=== PATIENT | female | born 1960 | race Two or more races ===

== ENCOUNTER 2021-12-15 15:07 | Outpatient (CLI) | payer OTHER | END 2021-12-15 15:18 | disposition home or self-care (01) | LOC: RAD 15:07 | PROVIDERS: ATTEND Orthopaedic Surgery | DX: M25.561 Pain in right knee (principal); M25.562 Pain in left knee ==

== ENCOUNTER 2022-04-20 14:16 | Outpatient (CLI) | payer OTHER | END 2022-04-20 14:29 | disposition home or self-care (01) | LOC: LAB 14:16 | PROVIDERS: ATTEND Orthopaedic Surgery | DX: E55.9 Vitamin D deficiency, unspecified (principal); M85.9 Disorder of bone density and structure, unspecified; E56.1 Deficiency of vitamin K ==

== ENCOUNTER 2024-09-11 15:00 | Emergency (ER) | payer OTHER ==
[~2024-09-11] VITALS: Ht 160 cm; Wt 70.3 kg
[2024-09-11] MEDS ORDERED: GLUMETZA1000 MG (15:49)
[2024-09-11] MEDS ORDERED: COZAAR100 MG PO (15:50)
[2024-09-11] MEDS ORDERED: CRESTOR40 MG PO (15:51)
[2024-09-11] MEDS ORDERED: ALENDRONATE SOD70 MG PO (15:51)
[2024-09-11] MEDS ORDERED: FENOFIBRATE150 MG (15:51)
[2024-09-11] MEDS ORDERED: PEPCID AC10 MG (15:52)
[2024-09-11] MEDS ORDERED: DEXAMETHASONE SODIUM PHOSPHATE 4 MG/ML VIAL IM ONE (17:30)
[2024-09-11] MEDS ORDERED: KETOROLAC TROMETHAMINE 60 MG VIAL IM ONE (17:30)
== END 2024-09-11 18:26 | disposition home or self-care (01) ==
LOC: ER 15:02
DX: M25.561 Pain in right knee (principal); E11.9 Type 2 diabetes mellitus without complications; I10 Essential (primary) hypertension; Z79.84 Long term (current) use of oral hypoglycemic drugs; Z88.2 Allergy status to sulfonamides
CPT/HCPCS: 96372; 99282; J1100; J1885